=== PATIENT | female | born 1945 | race Caucasian/White ===

== ENCOUNTER 2021-08-25 14:40 | Observation (INO) | payer MEDICARE, OTHER ==
[~2021-08-25] VITALS: Ht 162.6 cm; Wt 72.6 kg
[~2021-08-25 14:40] MED LIST: DIFLUCAN150 MG PO; NORCO 5-325 TA1 EACH PO; OMNICEF 300 MG300 MG PO; PREDNISONE 50 M50 MG PO
[2021-08-25 15:12] LABS: HEMOGLOBIN 13.7 gm/dl (12.3-15.3); RED BLOOD COUNT 4.25 M/UL (4.00-5.10); WHITE BLOOD COUNT 13.9 K/UL (4.5-11.0)
[2021-08-25 15:38] LABS: BUN/CREATININE RATIO 19 (0-10)
[2021-08-25] MEDS ORDERED: IMIPRAMINE HCL50 MG PO (16:22)
[2021-08-25] MEDS ORDERED: AMBIEN10 MG PO (16:22)
[2021-08-25] MEDS ORDERED: INDERAL TAB 4040 MG PO (16:22)
[2021-08-25] MEDS ORDERED: ARICEPT10 MG PO (16:22)
[2021-08-25] MEDS ORDERED: NITROSTAT0.4 MG SL (16:23)
[2021-08-25] MEDS ORDERED: RELAFEN750 MG PO (16:23)
[2021-08-25] MEDS ORDERED: ROBAXIN 750 MG750 MG PO (16:23)
[2021-08-25] MEDS ORDERED: PRAVASTATIN SOD20 MG PO (16:24)
[2021-08-25] MEDS ORDERED: TYLENOL 8 HOUR650 MG PO (17:18)
[2021-08-26 07:11] LABS: RED BLOOD COUNT 4.18 M/UL (4.00-5.10); WHITE BLOOD COUNT 11.9 K/UL (4.5-11.0)
[2021-08-26 07:47] LABS: BUN/CREATININE RATIO 17 (0-10)
[2021-08-26] MEDS ORDERED: ASPIRIN EC81 MG PO (11:06)
[2021-08-26] MEDS ORDERED: PROTONIX 40 MG40 M1 PO (11:07)
== END 2021-08-26 15:51 | disposition home or self-care (01) ==
LOC: ER1 14:40 → CDU 16:08 → M/S 16:42
PROVIDERS: Emergency Medicine; Physician Assistant Medical; ADMIT Internal Medicine
DX: R07.89 Other chest pain (principal); R13.19 Other dysphagia; R06.02 Shortness of breath; R11.2 Nausea with vomiting, unspecified; E11.9 Type 2 diabetes mellitus without complications; I10 Essential (primary) hypertension; I34.1 Nonrheumatic mitral (valve) prolapse; E78.5 Hyperlipidemia, unspecified; R47.01 Aphasia; M19.90 Unspecified osteoarthritis, unspecified site; Z98.61 Coronary angioplasty status; Z90.710 Acquired absence of both cervix and uterus; Z88.5 Allergy status to narcotic agent; Z88.2 Allergy status to sulfonamides; Z20.822 Contact with and (suspected) exposure to COVID-19
CPT/HCPCS: ECHO; 36415; 71045; 80048; 80053; 82550; 82553; 82962; 83735; 83874; 84484; 85025; 85027; 93005; 93306; 96372; 99285; G0378; J1650; U0002